=== PATIENT | male | born 1965 | race Caucasian/White ===

== ENCOUNTER 2017-06-08 17:38 | Emergency (ER) | payer OTHER ==
[~2017-06-08] VITALS: Ht 177.8 cm; Wt 91.5 kg
[~2017-06-08 17:38] MED LIST: claritin
[2017-06-08 18:18] LABS: HEMATOCRIT 41.8 % (38.0-50.0); MCH 31.4 PG (29.0-34.0); MCHC 34.9 G/DL (30.0-36.0); MCV 89.9 FL (86-99); MEAN PLAT.VOLUME 8.7 uM^3 (9.0-12.4); PLATELET COUNT 249 K/uL (156-360); RBC DIS.WIDTH-CV 12.1 % (11.8-14.6); RED BLOOD COUNT 4.65 M/uL (4.00-5.50); WHITE BLOOD COUNT 11.2 K/uL (4.1-10.2)
[2017-06-08 18:29] LABS: CHLORIDE 103 mEq/L (99-109); SODIUM 136 mEq/L (136-147)
[2017-06-08 18:31] LABS: GLUCOSE 101 mg/dL (70-99)
[2017-06-08 18:33] LABS: ANION GAP 9 MEQ/L (2-14); TOTAL BILIRUBIN 0.5 mg/dL (0.0-1.0)
[2017-06-08 18:35] LABS: ALKALINE PHOSPHATASE 50 IU/L (3-129); GFR ESTIMATE (CALCULATED) > 59 mL/min/
[2017-06-08 18:36] LABS: UREA NITROGEN (BUN) 14 mg/dL (9-23)
[2017-06-08 18:38] LABS: LIPASE 18 U/L (1.0-51.0)
[2017-06-08 18:51] LABS: ADD MIUA? NO; BILIRUBIN NEGATIVE; BLOOD NEGATIVE; COLOR STRAW ((YELLOW)); GLUCOSE (STRIP) NEGATIVE; KETONES NEGATIVE; LEUKOCYTES NEGATIVE; NITRITE NEGATIVE; PROTEIN (STRIP) NEGATIVE; SPECIFIC GRAVITY 1.013 (1.000-1.030); UCUL ADDED? NO; UROBILINOGEN 0.2 MG/DL (0.2-1.0)
[2017-06-08] MEDS ORDERED: ZOFRAN ODT4 MG PO (21:24)
[2017-06-08] MEDS ORDERED: NORCO 5/3251 TABLET PO (21:24)
[2017-06-08] MEDS ORDERED: LEVAQUIN750 MG PO (21:24)
[2017-06-08] MEDS ORDERED: FLAGYL500 MG PO (21:24)
[2017-06-08] MEDS ORDERED: STOOL SOFTENER250 MG PO (21:24)
[2017-06-08 21:32] VITALS: BP 150/108
== END 2017-06-08 21:33 | disposition home or self-care (01) ==
LOC: EME 17:38
DX: K57.32 Diverticulitis of large intestine without perforation or abscess without bleeding (principal); Z88.1 Allergy status to other antibiotic agents
CPT/HCPCS: 74177; 80053; 81003; 83605; 83690; 85027; 87040; 99281; 99284; J1885; J2405